=== PATIENT | female | born 1965 | race Caucasian/White ===

== ENCOUNTER 2019-02-20 08:50 | Emergency (ER) | payer MEDICAID ==
[~2019-02-20] VITALS: Ht 144.8 cm; Wt 68.5 kg
[2019-02-20 08:50] VITALS: BP 163/69
[~2019-02-20 08:50] MED LIST: ACAR25TA PO; GLIP10TA12 PO; GLIP10TE PO; LEVO500T6 PO; SLIDE SUBQ; [UNRECOGNIZED DRUG - CODE] VG
--- NOTE | 2019-02-20 08:52 | NUR ---
4290-- PT JOSEA ALS TO ER BED 8
--- NOTE | 2019-02-20 09:23 | NUR ---
dr hugo at bedside
[2019-02-20] MEDS: KETOROLAC 30 MG/ML VIAL IVP ONE (09:37)
--- NOTE | 2019-02-20 09:38 | NUR ---
PT TAKEN TO CT VIA [facility]
--- NOTE | 2019-02-20 09:54 | NUR ---
PT RETURNED FROM CT
--- NOTE | 2019-02-20 10:28 | NUR ---
checked on pt . resting comfortably in her bed. pt states her pain lowered 6/10 at this time. will continue to monitor pt.
[2019-02-20] MEDS: HYDROcodone/APAP 5/325 MG 1 TAB TAB PO ONE (11:57)
--- NOTE | 2019-02-20 11:57 | NUR ---
medicated pt as ordered, waiting for the ride for pt. resting comfortably in her bed.
[2019-02-20 12:06] VITALS: BP 163/79
--- NOTE | 2019-02-20 12:15 | NUR ---
Patient discharged with v/s stable. Written and verbal after care instructions given and explained. Patient alert, oriented and verbalized understanding of instructions. Ambulatory with steady gait. All questions addressed prior to discharge. ID band removed. Patient advised to follow up with PMD. Rx of norco 5mg-325mg , naprosyn 375mg given. Patient educated on indication of medication including possible reaction and side effects. Opportunity to ask questions provided and answered.
== END 2019-02-20 12:15 | disposition home or self-care (01) ==
LOC: MED 08:50
DX: S16.1XXA Strain of muscle, fascia and tendon at neck level, initial encounter (principal); S29.012A Strain of muscle and tendon of back wall of thorax, initial encounter; M25.519 Pain in unspecified shoulder; R51 Headache; E11.9 Type 2 diabetes mellitus without complications; Z79.2 Long term (current) use of antibiotics; Z79.4 Long term (current) use of insulin; Z79.84 Long term (current) use of oral hypoglycemic drugs; Z79.899 Other long term (current) drug therapy; V49.49XA Driver injured in collision with other motor vehicles in traffic accident, initial encounter; Y93.89 Activity, other specified; Y92.488 Other paved roadways as the place of occurrence of the external cause; Y99.8 Other external cause status
CPT/HCPCS: 72125; 72128; 96374; 99284; J1885